=== PATIENT | female | born 2000 | race Caucasian/White ===

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

== ENCOUNTER 2022-06-07 23:32 | Emergency (ER) | payer OTHER ==
[~2022-06-07] VITALS: Ht 170.2 cm; Wt 54.4 kg
[~2022-06-07 23:32] MED LIST changes: +FAMO20TA PO; +FLUO20CA22 PO; +ZOFR4TAB16 PO
[2022-06-07 23:33] VITALS: BP 109/60
== END 2022-06-08 02:33 | disposition left against medical advice (07) ==
LOC: M ED 23:32
DX: Z53.21 Procedure and treatment not carried out due to patient leaving prior to being seen by health care provider (principal)

== ENCOUNTER 2022-06-09 18:45 | Emergency (ER) | payer OTHER, MEDICARE ==
[~2022-06-09] VITALS: Ht 170.2 cm; Wt 52.1 kg
[2022-06-09 20:19] LABS: BASO % 0.3 % (0.0-1.0); EOS # 0.1 10^3/uL (0.0-0.5); EOS % 0.5 % (0.0-3.0); HEMATOCRIT 42.3 % (36.0-47.0); HEMOGLOBIN 14.5 g/dl (12.0-15.5); LYMPH # 1.4 10^3/uL (1.5-5.0); LYMPH % 15.6 % (24.0-44.0); MEAN CORPUSCULAR HEMOGLOBIN 30.9 pg (27.0-33.0); MEAN CORPUSCULAR HGB CONC 34.3 g/dl (32.0-36.5); MEAN CORPUSCULAR VOLUME 90.2 fl (80.0-96.0); MONO # 0.6 10^3/uL (0.0-0.8); NEUTROPHILS # 7.1 10^3/uL (1.5-8.5); NEUTROPHILS % 77.3 % (36.0-66.0); PLATELET COUNT, AUTOMATED 276 10^3/uL (150-450); RED BLOOD COUNT 4.69 10^6/uL (4.00-5.40); WHITE BLOOD COUNT 9.2 10^3/uL (4.0-10.0)
[2022-06-09 20:25] LABS: APPEARANCE, URINE MANUAL HAZY (CLEAR); COLOR, URINE MANUAL YELLOW (YELLOW)
[2022-06-09 20:27] LABS: BILIRUBIN, URINE MANUAL NEGATIVE (NEGATIVE); BLOOD URINE MANUAL POSITIVE (NEGATIVE); GLUCOSE, URINE (UA) MANUAL NEGATIVE (NEGATIVE); KETONE, URINE MANUAL NEGATIVE (NEGATIVE); LEUKOCYTE ESTERASE, URINE MAN POSITIVE (NEGATIVE); NITRITE, URINE MANUAL NEGATIVE (NEGATIVE); PH,URINE MAN 5.5 UNITS (5.0 - 7.0); PROTEIN, URINE MANUAL 1+ mg/dL (NEGATIVE); UROBILINOGEN, URINE MANUAL NORMAL (NORMAL)
[2022-06-09 20:44] LABS: RBC, URINE NONE SEEN /hpf (0-3); SQUAMOUS EPITHELIAL CELL URINE LARGE AMOUNT /hpf (SMALL AMT)
[2022-06-09 20:45] LABS: BACTERIA, URINE LARGE AMOUNT; HYALINE CAST, URINE NONE SEEN /lpf (0-1); MUCUS, URINE MOD AMOUNT (NEGATIVE)
[2022-06-09 20:55] LABS: HCG, SERUM QUALITATIVE NEGATIVE (NEGATIVE)
[2022-06-09 21:04] LABS: ALBUMIN 4.3 GM/DL (3.2-5.2); ALT/SGPT 20 U/L (12-78); BILIRUBIN,DIRECT 0.1 MG/DL (0.0-0.2); BILIRUBIN,TOTAL 0.3 MG/DL (0.2-1.0); BLOOD UREA NITROGEN 10 MG/DL (7-18); CALCIUM LEVEL 9.2 MG/DL (8.5-10.1); CARBON DIOXIDE LEVEL 26 MEQ/L (21-32); CHLORIDE LEVEL 109 MEQ/L (98-107); CREATININE FOR GFR 0.74 MG/DL (0.55-1.30); GLUCOSE, FASTING 102 MG/DL (70-100); LIPASE 197 U/L (73-393); POTASSIUM SERUM 3.7 MEQ/L (3.5-5.1); SODIUM LEVEL 140 MEQ/L (136-145); TOTAL PROTEIN 7.6 GM/DL (6.4-8.2)
[2022-06-09 21:50] LABS: GC DNA AMPLIFICATION NEGATIVE (NEGATIVE)
[2022-06-10] MEDS ORDERED: CEPHALEXIN 500 MG CAP PO ONE (00:05)
[2022-06-10] MEDS ORDERED: PHENAZOPYRIDINE 100 MG TAB PO ONE (00:05)
[2022-06-10] MEDS ORDERED: CEPH500C PO (00:06)
[2022-06-10] MEDS ORDERED: PYRI1TAB5 PO (00:06)
[2022-06-10 00:17] VITALS: BP 112/60
== END 2022-06-10 00:18 | disposition home or self-care (01) ==
LOC: M ED 18:45
DX: N39.0 Urinary tract infection, site not specified (principal); F41.9 Anxiety disorder, unspecified; F17.200 Nicotine dependence, unspecified, uncomplicated; Z88.8 Allergy status to other drugs, medicaments and biological substances

== ENCOUNTER 2022-08-28 09:33 | Emergency (ER) | payer MEDICARE, OTHER ==
[~2022-08-28] VITALS: Ht 170.2 cm; Wt 54.1 kg
[~2022-08-28 09:33] MED LIST changes: +CEPH500C PO; +PYRI1TAB5 PO
[2022-08-28 09:45] VITALS: BP 117/69
[2022-08-28] MEDS ORDERED: NS 1,000 ML IV ONE (10:45)
[2022-08-28] MEDS ORDERED: ONDANSETRON 4MG 2ML VIAL IV ONE (10:45)
[2022-08-28] MEDS ORDERED: METOCLOPRAMIDE INJ 10MG/2ML VIAL (J2765 PER 1) IV ONE (10:55)
[2022-08-28 11:00] LABS: BASO % 0.3 % (0.0-1.0); EOS % 0.5 % (0.0-3.0); HEMATOCRIT 38.9 % (36.0-47.0); HEMOGLOBIN 13.2 g/dl (12.0-15.5); LYMPH # 1.2 10^3/uL (1.5-5.0); LYMPH % 16.2 % (24.0-44.0); MEAN CORPUSCULAR HEMOGLOBIN 30.3 pg (27.0-33.0); MEAN CORPUSCULAR HGB CONC 33.9 g/dl (32.0-36.5); MEAN CORPUSCULAR VOLUME 89.2 fl (80.0-96.0); MONO # 0.5 10^3/uL (0.0-0.8); NEUTROPHILS # 5.7 10^3/uL (1.5-8.5); NEUTROPHILS % 76.6 % (36.0-66.0); PLATELET COUNT, AUTOMATED 235 10^3/uL (150-450); RED BLOOD COUNT 4.36 10^6/uL (4.00-5.40); WHITE BLOOD COUNT 7.5 10^3/uL (4.0-10.0)
[2022-08-28] MEDS ORDERED: KETOROLAC 30 MG/ML 1ML VIAL IV ONE (11:20)
[2022-08-28] MEDS ORDERED: ISOVUE-370 76% 100ML VIAL As Ordered ONE (11:38)
[2022-08-28] MEDS ORDERED: cefTRIAXone SOD 1 GM in D5W MINI-BAG PLUS 50 ML IV ONE (12:40)
[2022-08-28] MEDS ORDERED: KETO10TAB PO (12:41)
[2022-08-28 13:57] LABS: GC DNA AMPLIFICATION NEGATIVE (NEGATIVE)
== END 2022-08-28 13:34 | disposition home or self-care (01) ==
LOC: M ED 09:33 → EDBD 09:33 → M ED 13:34
DX: N20.0 Calculus of kidney (principal); K21.9 Gastro-esophageal reflux disease without esophagitis; G43.909 Migraine, unspecified, not intractable, without status migrainosus; F41.9 Anxiety disorder, unspecified; F32.A Depression, unspecified; F17.200 Nicotine dependence, unspecified, uncomplicated; Z88.8 Allergy status to other drugs, medicaments and biological substances; Z79.899 Other long term (current) drug therapy
CPT/HCPCS: 74176; 80047; 81000; 81015; 84702; 85025; 87086; 87661; 87810; 87850; 96374; 96375; 99284; J0696; J1885; J2765

== ENCOUNTER → 2022-09-12 | Outpatient (REF) | payer MEDICARE, OTHER ==
[~2022-09-12] MED LIST changes: +KETO10TAB PO
[2022-09-12 19:27] LABS: BLOOD UREA NITROGEN 14 MG/DL (9-23); CALCIUM LEVEL 10.1 MG/DL (8.5-10.1); CARBON DIOXIDE LEVEL 24 MMOL/L (20-31); CHLORIDE LEVEL 103 MMOL/L (98-107); CREATININE FOR GFR 0.62 MG/DL (0.55-1.30); GLUCOSE, FASTING 73 MG/DL (60-100); SODIUM LEVEL 140 MMOL/L (136-145)
== END ==
LOC: M LAB REF 16:27
PROVIDERS: ATTEND Family Medicine Addiction Medicine
DX: E87.6 Hypokalemia (principal)

== ENCOUNTER 2023-03-05 10:30 | Emergency (ER) | payer MEDICARE, OTHER ==
[2023-03-05 10:52] VITALS: BP 142/87
[2023-03-05 11:57] LABS: BASO % 0.3 % (0.0-1.0); EOS % 0.1 % (0.0-3.0); HEMOGLOBIN 13.4 g/dl (12.0-15.5); LYMPH # 0.8 10^3/uL (1.5-5.0); MEAN CORPUSCULAR HEMOGLOBIN 31.1 pg (27.0-33.0); MEAN CORPUSCULAR HGB CONC 34.4 g/dl (32.0-36.5); MEAN CORPUSCULAR VOLUME 90.5 fl (80.0-96.0); MONO # 0.2 10^3/uL (0.0-0.8); MONO % 2.7 % (2.0-8.0); NEUTROPHILS # 6.7 10^3/uL (1.5-8.5); NEUTROPHILS % 86.8 % (36.0-66.0); PLATELET COUNT, AUTOMATED 239 10^3/uL (150-450); RED BLOOD COUNT 4.31 10^6/uL (4.00-5.40); WHITE BLOOD COUNT 7.8 10^3/uL (4.0-10.0)
[2023-03-05] MEDS ORDERED: GI COCKTAIL 50ML BTL(HYOSCYAMINE/MAALOX/LIDOCAINE VISCOUS)(1:3:1) PO ONE (12:00)
[2023-03-05] MEDS ORDERED: SUCRALFATE 1 GM TAB PO ONE (12:00)
[2023-03-05] MEDS ORDERED: NS 1,000 ML IV ONE (12:00)
[2023-03-05] MEDS ORDERED: ONDANSETRON 4MG 2ML VIAL IV ONE (12:00)
[2023-03-05] MEDS ORDERED: PANTOPRAZOLE 40MG VIAL IV ONE (12:00)
[2023-03-05 12:13] LABS: LIPASE 33 U/L (12-53)
[2023-03-05 12:15] LABS: ALBUMIN 4.5 G/DL (3.2-5.2); ALKALINE PHOSPHATASE 98 U/L (46-116); ALT/SGPT 13 U/L (7.0-40); AST/SGOT 17 U/L (<34); BILIRUBIN,DIRECT 0.3 MG/DL (<0.4); BILIRUBIN,TOTAL 0.8 MG/DL (0.3-1.2); BLOOD UREA NITROGEN 15 MG/DL (9-23); CARBON DIOXIDE LEVEL 22 MMOL/L (20-31); CHLORIDE LEVEL 105 MMOL/L (98-107); CREATININE FOR GFR 0.53 MG/DL (0.55-1.30); GLOMERULAR FILTRATION RATE > 60.0 (>60); GLUCOSE, FASTING 66 MG/DL (60-100); POTASSIUM SERUM 3.5 MMOL/L (3.5-5.1); SODIUM LEVEL 136 MMOL/L (136-145); TOTAL PROTEIN 7.6 G/DL (5.7-8.2)
[2023-03-05 12:20] LABS: HCG, SERUM QUALITATIVE NEGATIVE (NEGATIVE)
[2023-03-05] MEDS ORDERED: AUGMENTIN 875 MG TAB PO ONE (13:25)
[2023-03-05] MEDS ORDERED: PROM25TA12 PO (14:14)
[2023-03-05] MEDS ORDERED: FAMO20TA PO (14:15)
[2023-03-05] MEDS ORDERED: CARA1TAB6 PO (14:15)
== END 2023-03-05 14:42 | disposition home or self-care (01) ==
LOC: EDBD 10:30 → M ED 10:30
DX: R11.2 Nausea with vomiting, unspecified (principal); R10.13 Epigastric pain; F31.9 Bipolar disorder, unspecified; F41.9 Anxiety disorder, unspecified; G43.909 Migraine, unspecified, not intractable, without status migrainosus; Z79.810 Long term (current) use of selective estrogen receptor modulators (SERMs); Z79.899 Other long term (current) drug therapy
CPT/HCPCS: 80048; 80076; 83690; 84703; 85025; 96374; 99284; C9113; J2405

== ENCOUNTER 2023-03-13 03:11 | Emergency (ER) | payer MEDICARE, OTHER ==
[~2023-03-13 03:11] MED LIST changes: +PROM25TA12 PO
[2023-03-13] MEDS ORDERED: AMOX500C (03:25)
[2023-03-13] MEDS ORDERED: ACET-683 PO (03:25)
[2023-03-13] MEDS ORDERED: ONDANSETRON 4MG ORAL DISINTEGRATING TAB PO ONE (05:40)
[2023-03-13] MEDS ORDERED: PANTOPRAZOLE 40MG TAB (PROTONIX) PO ONE (05:40)
[2023-03-13] MEDS ORDERED: PROT1TAB2 PO (05:48)
[2023-03-13] MEDS ORDERED: ONDA4TAB6 PO (05:48)
[2023-03-13 05:59] VITALS: BP 106/62
== END 2023-03-13 06:01 | disposition home or self-care (01) ==
LOC: EDBD 03:11 → M ED 03:11
DX: K30 Functional dyspepsia (principal); R11.0 Nausea; F17.200 Nicotine dependence, unspecified, uncomplicated; Z88.8 Allergy status to other drugs, medicaments and biological substances; Z79.2 Long term (current) use of antibiotics; Z79.83 Long term (current) use of bisphosphonates; Z79.899 Other long term (current) drug therapy

== ENCOUNTER 2023-05-12 16:50 | Emergency (ER) | payer MEDICARE, OTHER ==
[~2023-05-12 16:50] MED LIST changes: +ACET-683 PO; +AMOX500C; +DICY-61 PO; -DICY10CA13 PO; +PROT1TAB2 PO
[2023-05-12 17:10] VITALS: BP 129/78; TEMP 98.2; O2SAT 98
== END 2023-05-12 18:14 | disposition home or self-care (01) ==
LOC: M ED 16:50
DX: F32.A Depression, unspecified (principal); F41.9 Anxiety disorder, unspecified; F17.200 Nicotine dependence, unspecified, uncomplicated; Z88.8 Allergy status to other drugs, medicaments and biological substances; Z79.899 Other long term (current) drug therapy

== ENCOUNTER 2023-08-03 18:25 | Emergency (ER) | payer MEDICARE ==
[~2023-08-03] VITALS: Ht 170.2 cm; Wt 47.0 kg
[2023-08-03] MEDS ORDERED: METR-265 (18:40)
[2023-08-03 20:37] VITALS: BP 137/67; TEMP 99.1; O2SAT 97
== END 2023-08-03 22:48 | disposition left against medical advice (07) ==
LOC: M ED 18:25
DX: Z53.21 Procedure and treatment not carried out due to patient leaving prior to being seen by health care provider (principal)

== ENCOUNTER → 2025-03-14 | Outpatient (REF) | payer MEDICARE ==
[~2025-03-14] MED LIST changes: +FLUO-365; +FLUO-365 PO; -FLUO20CA22; -FLUO20CA22 PO; +METR-265; -OLAN2.5T25; +OLAN2.5T53; +ONDA-282 PO; -ONDA4TAB6 PO
[2025-03-14 18:39] LABS: BASO % 0.7 % (0.0-1.0); EOS # 0.1 10^3/uL (0.0-0.5); EOS % 2.1 % (0.0-3.0); HEMATOCRIT 41.4 % (36.0-47.0); HEMOGLOBIN 14.3 g/dl (12.0-15.5); LYMPH # 1.8 10^3/uL (1.5-5.0); LYMPH % 42.9 % (24.0-44.0); MEAN CORPUSCULAR HEMOGLOBIN 30.4 pg (27.0-33.0); MEAN CORPUSCULAR HGB CONC 34.5 g/dl (32.0-36.5); MEAN CORPUSCULAR VOLUME 88.1 fl (80.0-96.0); MONO # 0.3 10^3/uL (0.0-0.8); MONO % 6.8 % (2.0-8.0); PLATELET COUNT, AUTOMATED 305 10^3/uL (150-450); WHITE BLOOD COUNT 4.3 10^3/uL (4.0-10.0)
[2025-03-14 18:54] LABS: HEMOGLOBIN A1c 4.6 % (4.0-6.0)
[2025-03-14 18:58] LABS: ALBUMIN 4.4 G/DL (3.2-5.2); ALKALINE PHOSPHATASE 99 U/L (35-104); ALT/SGPT 13 U/L (7.0-40); AST/SGOT 13 U/L (<34); BILIRUBIN,TOTAL 0.5 MG/DL (0.3-1.2); BLOOD UREA NITROGEN 7 MG/DL (9-23); CALCIUM LEVEL 9.7 MG/DL (8.5-10.1); CARBON DIOXIDE LEVEL 25 MMOL/L (20-31); CHLORIDE LEVEL 107 MMOL/L (98-107); CREATININE FOR GFR 0.62 MG/DL (0.55-1.30); GLOMERULAR FILTRATION RATE > 90.0 (>60); GLUCOSE, FASTING 75 MG/DL (60-100); POTASSIUM SERUM 4.3 MMOL/L (3.5-5.1); SODIUM LEVEL 140 MMOL/L (136-145); TOTAL PROTEIN 7.1 G/DL (5.7-8.2)
[2025-03-14 19:00] LABS: FREE T4 1.37 NG/DL (0.89-1.76); THYROID STIMULATING HORMONE 1.113 uIU/ML (0.55-4.78)
== END ==
LOC: M LAB REF 17:39
PROVIDERS: ATTEND Family Medicine Addiction Medicine
DX: R63.6 Underweight (principal); Z79.899 Other long term (current) drug therapy

== ENCOUNTER 2025-07-27 02:15 | Emergency (ER) | payer MEDICARE, MEDICAID ==
[~2025-07-27] VITALS: Ht 172.7 cm; Wt 63.8 kg
[~2025-07-27 02:15] MED LIST changes: -IBUP-1022 PO; +IBUP600T42 PO
[2025-07-27 02:18] VITALS: BP 107/61; TEMP 97.3; O2SAT 98
[2025-07-27 05:10] LABS: PLATELET COUNT, AUTOMATED 261 10^3/uL (150-450)
[2025-07-27] MEDS ORDERED: CEPH500C PO (06:51)
== END 2025-07-27 06:52 | disposition left against medical advice (07) ==
LOC: M ED 02:15
DX: N64.4 Mastodynia (principal); K21.9 Gastro-esophageal reflux disease without esophagitis; G43.909 Migraine, unspecified, not intractable, without status migrainosus; F31.9 Bipolar disorder, unspecified; F41.9 Anxiety disorder, unspecified; F10.10 Alcohol abuse, uncomplicated; Z88.8 Allergy status to other drugs, medicaments and biological substances; Z79.2 Long term (current) use of antibiotics; Z53.9 Procedure and treatment not carried out, unspecified reason

== ENCOUNTER → 2025-08-22 | Outpatient (REF) | payer MEDICARE, MEDICAID | LOC: M LAB REF 11:43 | PROVIDERS: ATTEND Student in an Organized Health Care Education/Training Program | DX: S21.03 Puncture wound without foreign body of breast (principal); N61.0 Mastitis without abscess; Y92.9 Unspecified place or not applicable; Y93.9 Activity, unspecified ==

== ENCOUNTER → 2025-10-17 | Outpatient (REF) | payer MEDICARE, MEDICAID | LOC: M LAB REF 17:50 | PROVIDERS: ATTEND Surgery | DX: N61.1 Abscess of the breast and nipple (principal) ==